=== PATIENT | male | born 1940 | race Caucasian/White ===

== ENCOUNTER 2018-05-04 13:58 | Emergency (ER) | payer MEDICARE, BC ==
[2018-05-04 14:26] VITALS: BP 135/74
[2018-05-04] MEDS ORDERED: PROPARACAINE 0.5% OPHTH DROPS 15 ML EACHEYE STA (14:27)
[2018-05-04] MEDS ORDERED: ERYTHROMYCIN OPHTH OINT 1 GM TUBE LEFTEYE STA (14:45)
--- NOTE | 2018-05-04 14:48 | ED Physician Documentation ---
PD HPI OPHTHO - Stated complaint Stated Complaint: ACCIDENTAL EYE POKE - Chief complaint Chief Complaint: Heent - History obtained from History obtained from: Patient - History of Present Illness Timing - onset: Today (His acidentally scratched him in the left eye today. His vision is unaffected.) Review of Systems Constitutional: reports: Reviewed and negative Eyes: denies: Loss of vision, Decreased vision, Photophobia, Irritation Ears: denies: Loss of hearing, Ear pain PD PAST MEDICAL HISTORY - Present Medications Home Medications: Ambulatory Orders Medication Instructions Recorded Confirmed Bimatoprost [Lumigan] 5 ml OP 05/04/18 Clopidogrel [Plavix] 75 mg PO DAILY 05/04/18 05/04/18 Erythromycin Base [Erythromycin 1 appful OP 5XD 7 Days #1 oint...g. 05/04/18 Ophthalmic Ointment] Levothyroxine [Synthroid] 50 mcg PO QDAC 05/04/18 05/04/18 RX: Ezetimibe 10 mg PO 05/04/18 - Allergies Allergies/Adverse Reactions: Allergies Allergy/AdvReac Type Severity Reaction Status Date / Time No Known Drug Allergies Allergy Verified 05/04/18 14:21 PD ED PE NORMAL - Vitals Vital signs reviewed: Yes - General General: Alert and oriented X 3, No acute distress - HEENT HEENT: PERRL, EOMI, Other (There is an inferolateral scleral laceration with negative Meet sign, no other fluorescein uptake.) - Neck Neck: Supple, no meningeal sign, No bony TTP - Neuro Neuro: Alert and oriented X 3 Results - Vitals Vitals: Vital Signs - 24 hr 05/04/18 14:23 Temperature 36.2 C L Heart Rate 65 Respiratory 14 Rate Blood Pressure 135/74 H O2 Saturation 97 Oxygen O2 Source Room air PD MEDICAL DECISION MAKING - ED course ED course: He also had ancillary incidental questions about the shingles vaccine containing MSG which he is allergic to. We did some research on this and there is a [id number]. Departure - Departure Disposition: 01 Home, Self Care Clinical Impression: Scleral laceration of left eye Condition: Good Record reviewed to determine appropriate education?: Yes Instructions: Subconjunctival Hemorrhage Prescriptions: Erythromycin Base [Erythromycin Ophthalmic Ointment] 1 appful OP 5XD 7 Days #1 oint...g. Comments: As discussed, the shingles vaccine "Shingrix" does not contain MSG per my research.3 Follow-up with your eye doctor in 3 days if not improving. Discharge Date/Time: 05/04/18 14:57
== END 2018-05-04 14:57 | disposition home or self-care (01) ==
LOC: ED 13:58
DX: H15.89 Other disorders of sclera (principal)
CPT/HCPCS: 99283; J3490

== ENCOUNTER 2022-06-28 09:07 | Outpatient (CLI) | payer MEDICARE, BC ==
[2022-06-28 14:28] LABS: BASOPHILS # (AUTO) 0.1 10^3/uL (0.0-0.1); BASOPHILS % (AUTO) 1.6 %; EOSINOPHILS # (AUTO) 0.1 10^3/uL (0.0-0.7); EOSINOPHILS % (AUTO) 1.9 %; HCT - HEMATOCRIT 49.5 % (42.0-52.0); HGB - HEMOGLOBIN 16.5 g/dL (14.0-18.0); LYMPHOCYTES # (AUTO) 1.2 10^3/uL (1.5-3.5); LYMPHOCYTES % (AUTO) 20.9 %; MEAN CORPUSCULAR HEMOGLOBIN 30.5 pg (27.0-31.0); MEAN CORPUSCULAR HGB CONC 33.3 g/dL (32.0-36.0); MEAN CORPUSCULAR VOLUME 91.5 fL (80.0-94.0); MEAN PLATELET VOLUME 9.5 fL (7.4-11.4); MONOCYTES # (AUTO) 0.5 10^3/uL (0.0-1.0); MONOCYTES % (AUTO) 9.4 %; NEUTROPHILS # (AUTO) 3.7 10^3/uL (1.5-6.6); NEUTROPHILS % (AUTO) 65.8 %; PLT - PLATELET COUNT 292 10^3/uL (130-450); RED BLOOD COUNT 5.41 10^6/uL (4.70-6.10); WHITE BLOOD COUNT 5.7 x10^3/uL (4.8-10.8)
[2022-06-28 15:05] LABS: THYROID STIMULATING HORMONE 7.03 uIU/mL (0.34-5.60)
[2022-06-28 15:45] LABS: ALBUMIN 4.2 g/dL (3.2-5.5); ALBUMIN/GLOBULIN RATIO 1.4 (1.0-2.2); ALKALINE PHOSPHATASE 66 IU/L (42-121); ALT ALANINE AMINOTRANSFERASE 18 IU/L (10-60); AST ASPARTATE AMINOTRANSFERASE 21 IU/L (10-42); BUN - BLOOD UREA NITROGEN 14 mg/dL (6-20); CALCIUM 9.2 mg/dL (8.5-10.3); CARBON DIOXIDE - CO2 27 mmol/L (21-32); CHLORIDE 98 mmol/L (101-111); CHOL/HDL RATIO 2.8 (<5.0); CHOLESTEROL 201 mg/dL; CREATININE 0.6 mg/dL (0.6-1.2); GFR - MDRD 129 (>89); GLUCOSE 89 mg/dL (70-100); HDL CHOLESTEROL 73 mg/dL; LDL CHOLESTEROL,CALCULATED 113 mg/dL; LDL/HDL RATIO 1.5 (<3.6); POTASSIUM 4.3 mmol/L (3.5-5.0); SODIUM 133 mmol/L (135-145); TOTAL PROTEIN 7.3 g/dL (6.7-8.2); TRIGLYCERIDES 73 mg/dL; VLDL CHOLESTEROL 15 mg/dL
[2022-06-28 16:05] LABS: FREE T4 (FREE THYROXINE) 1.12 ng/dL (0.58-1.64)
== END 2022-06-28 09:08 | disposition home or self-care (01) ==
LOC: LAB.S 09:07
PROVIDERS: ATTEND Internal Medicine
DX: E78.5 Hyperlipidemia, unspecified (principal); E03.9 Hypothyroidism, unspecified; R35.1 Nocturia; Z13.9 Encounter for screening, unspecified
CPT/HCPCS: 36415; 80053; 80061; 83721; 84153; 84439; 84443; 85025

== ENCOUNTER 2023-09-12 12:24 | Outpatient (CLI) | payer MEDICARE ==
--- NOTE | 2023-09-12 20:51 | MRI Report ---
PROCEDURE: Lumbar Spine WO INDICATIONS: SPINAL STENOSIS TECHNIQUE: Multiplanar multisequential MRI images of the lumbar spine were obtained without intraven ous contrast. COMPARISON: None. FINDINGS: Alignment and Curvature: Grade 1 anterior spinal listhesis L4-5. Grade 1 retrolisthesis L2-3. Bone Marrow: Degenerative endplate changes Spinal Cord: Conus medullaris terminates at the L1 level. Visualized cord demonstrates normal signa l and size. Paraspinal Soft Tissues: Unremarkable perivertebral soft tissues. T12-L1: No central or foraminal stenosis L1-L2: Disc space narrowing and posterior disc bulge with hypertrophic facet joints results in mod erate central stenosis. Moderate bilateral foraminal stenosis. L2-L3: Hypertrophic facet joints. Disc space narrowing. Mild central stenosis. Severe left and sev ere right foraminal stenosis. L3-L4: Disc bulge and arthropathy. Severe central stenosis. Severe bilateral foraminal stenosis L4-L5: Disc bulge and arthropathy. Severe central stenosis. Severe bilateral foraminal stenosis. L5-S1: No central stenosis. Arthropathy. Moderate bilateral foraminal stenosis. IMPRESSION: Multilevel degenerative disc disease and arthropathy results in varying degrees of central and forami nal stenosis including severe central stenosis L3-4 and L4-5 Reviewed by: Jose Alfredo Walsh MD on 09/12/2023 7:50 PM PAM Approved by: Jose Alfredo Walsh MD on 09/12/2023 7:50 PM AKJOHN PAUL Station ID: [id number]
== END 2023-09-12 12:25 | disposition home or self-care (01) ==
LOC: DI 12:24
PROVIDERS: ATTEND Internal Medicine
DX: M47.816 Spondylosis without myelopathy or radiculopathy, lumbar region (principal); M51.36 Other intervertebral disc degeneration, lumbar region; M48.061 Spinal stenosis, lumbar region without neurogenic claudication; M47.817 Spondylosis without myelopathy or radiculopathy, lumbosacral region; M48.07 Spinal stenosis, lumbosacral region